=== PATIENT | female | born 1930 | race Caucasian/White ===

== ENCOUNTER 2021-01-06 11:01 | Emergency (ER) | payer MEDICARE ==
[~2021-01-06] VITALS: Ht 165.1 cm; Wt 60.0 kg
[2021-01-06 14:04] LABS: URINE BILIRUBIN - DIPSTICK NEGATIVE (NEGATIVE); URINE BLOOD DIPSTICK NEGATIVE (NEGATIVE); URINE COLOR YELLOW; URINE GLUCOSE - DIPSTICK NEGATIVE (NEGATIVE); URINE KETONE NEGATIVE (NEGATIVE); URINE LEUK ESTERASE NEGATIVE (NEGATIVE); URINE NITRITE - DIPSTICK NEGATIVE (Negative); URINE PROTEIN - DIPSTICK NEGATIVE (NEG-TRACE); URINE UROBILINOGEN - DIPSTICK 0.2 E.U./dL (0.2)
[2021-01-06] MEDS ORDERED: PREDNISONE5 MG PO (14:06)
[2021-01-06] MEDS ORDERED: LEVOTHYROXIN50 MC1 PO (14:08)
[2021-01-06] MEDS ORDERED: LASIX 20 MG TAB20 MG PO (14:09)
[2021-01-06] MEDS ORDERED: VERAPAMIL120 M1 PO (14:09)
[2021-01-06] MEDS ORDERED: K-TABS10 MEQ PO (14:10)
[2021-01-06] MEDS ORDERED: ZOLOFT25 MG PO (14:11)
[2021-01-06] MEDS ORDERED: ELIQUIS2.5 MG PO (14:11)
[2021-01-06] MEDS ORDERED: SPIRIVA HANDIHALER IN (14:14)
[2021-01-06] MEDS ORDERED: TRAMADOL HCL E100 M1 PO (15:05)
[2021-01-06] MEDS ORDERED: VOLTAREN1%GEL TOP (15:05)
[2021-01-06 15:20] VITALS: BP 129/71
== END 2021-01-06 15:20 | disposition home or self-care (01) ==
LOC: ED 11:01
PROVIDERS: Family Medicine
DX: M54.5 Low back pain (principal); S22.080A Wedge compression fracture of T11-T12 vertebra, initial encounter for closed fracture; I11.0 Hypertensive heart disease with heart failure; I50.9 Heart failure, unspecified; J44.9 Chronic obstructive pulmonary disease, unspecified; X58.XXXA Exposure to other specified factors, initial encounter